=== PATIENT | female | born 1950 | race African-American/Black ===

== ENCOUNTER 2022-11-09 11:43 | Outpatient (REF) | payer MEDICARE, SELFPAY ==
[2022-11-09 14:50] LABS: Free T4 (Free Thyroxine) 0.89 ng/dL (0.71-1.85); Thyroid Stimulating Hormone 0.39 uIU/mL (0.32-4.0)
== END 2022-11-09 11:44 | disposition home or self-care (01) ==
LOC: HO.LAB 11:43
PROVIDERS: PCP Internal Medicine; Visit Provider Internal Medicine
DX: E04.2 Nontoxic multinodular goiter (principal)
CPT/HCPCS: 36415; 84439; 84443; 99202

== ENCOUNTER 2022-11-23 10:48 | Outpatient (REF) | payer MEDICARE, SELFPAY ==
--- NOTE | ~2022-11-23 | US_ITS ---
EXAMINATION: US THYROID CLINICAL INFORMATION: Nontoxic multinodular goiter COMPARISON: None available. TECHNIQUE: Linear transducer grayscale and color Doppler examination with attention to the region of the thyroid. FINDINGS: SIZE: Measurements of the thyroid lobes and nodules are given in sagittal, anteroposterior and transverse dimensions respectively. Right Thyroid Lobe: 6.2 x 2.3 x 3.0 cm, volume 21.8 mL. Parenchyma: The gland echotexture is homogeneous. Thyroid vascularity is normal. Left Thyroid Lobe: 4.7 x 2.3 x 2.1 cm, volume 12.2 mL. Parenchyma: The gland echotexture is homogeneous. Thyroid vascularity is normal. Isthmus: 0.6 cm in maximum AP dimension. Estimated total number of nodules greater than or equal to 1 cm: 4. 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 Location: Right superior/mid. Size: 1.2 x 1.3 x 0.6 cm, volume 0.5 mL. Nodule characteristics: Composition: Cystic(0). ACR TI-RADS total points: 0 ACR TI-RADS category: 1 2. Location: Right mid. Size: 2.6 x 1.9 x 1.8 cm, volume 5.0 mL. Nodule characteristics: Composition: Solid/almost completely solid (2). Echogenicity: Hypoechoic (2). Shape: Taller than wide (3). Margins: Ill-defined (0). Echogenic Foci: None (0). ACR TI-RADS total points: 7 ACR TI-RADS category: 5 3. Location: Left mid/inferior. Size: 0.8 x 0.7 x 0.7 cm, volume 0.2 mL. Nodule characteristics: Composition: Cystic(0). ACR TI-RADS total points: 0 ACR TI-RADS category: 1 4. Location: Left mid/inferior. Size: 1.7 x 1.6 x 1.1 cm, volume 1.6 mL. Nodule characteristics: Composition: Solid/almost completely solid (2). Echogenicity: Very hypoechoic (3). Shape: Taller than wide (3). Margins: Ill-defined (0). Echogenic Foci: Macrocalcifications (1). ACR TI-RADS total points: 9 ACR TI-RADS category: 5 5. Location: Left inferior. Size: 1.5 x 0.9 x 1.3 cm, volume 0.9 mL. Nodule characteristics: Composition: Solid (2). Echogenicity: Isoechoic (1). Shape: Not taller than wide (0). Margins: Smooth (0). Echogenic Foci: None (0). ACR TI-RADS total points: 3 ACR TI-RADS category: 3 NODES: No lymphadenopathy is seen in the tissue surrounding the thyroid gland. US/US thyroid IMPRESSION: Enlarged thyroid gland, right greater than left, with bilateral cystic and solid nodules. According to TI RADS criteria, fine-needle aspiration of the 2.6 x 1.9 x 1.8 cm nodule in the mid right lobe and 1.7 x 1.6 x 1.1 cm nodule in the mid to lower left lobe recommended. ACR TI-RADS RECOMMENDATION REFERENCE: Ultrasound-guided fine-needle aspiration, followup ultrasound, no further follow up. * TR1 (0 point) and TR2 (2 points): No FNA or follow up. * TR3 (3 points): FNA if more than or equal to 2.5 cm in maximum dimension, followup ultrasound in 1, 3 and 5 years if 1.5 to 2.4 cm in maximum dimension. * TR4 (4-6 points): FNA if more than or equal to 1.5 cm in maximum dimension, followup ultrasound in 1, 2, 3 and 5 years if 1 to 1.4 cm in maximum dimension. * TR5 (more than or equal to 7 points): FNA if more than or equal to 1 cm in maximum dimension, followup ultrasound every year for 5 years if 0.5 to 0.9 cm in maximum dimension. * TR3, TR4 or TR5 nodules that are below the size threshold for followup receive no follow up.
== END 2022-11-23 10:49 | disposition home or self-care (01) ==
LOC: HO.US 10:48
PROVIDERS: PCP Internal Medicine; Visit Provider Internal Medicine
DX: E04.2 Nontoxic multinodular goiter (principal)
CPT/HCPCS: 76536

== ENCOUNTER 2024-03-03 11:03 | Outpatient (AMB) | payer MEDICARE, SELFPAY ==
--- NOTE | 2024-03-03 11:05 | A.OFFVIS_ITS ---
Vital Signs 3 03/03/24 11:09 Height 5 ft 2 in Weight 135 lb 5.821 oz BMI 24.8 BP 96/84 Blood Pressure Location Lt brachial Position Sitting Pulse 107 H Pulse Source Pulse Oximeter Intake Visit Reasons: NTMNG-confirmed Intake Note: Patient present today for NTMNG follow up visit. Steward/Stewardess Wine Required: No Accompanied by: Friend Allergies No Known Allergies Allergy (Verified 03/03/24 11:11) Medication List - Last Reconciled 03/03/24 by Odalys Zamorano MD albuterol sulfate 90 mcg/actuation (Ventolin HFA) 0 mcg inhalation amlodipine 10 mg PO DAILY aspirin 81 mg PO DAILY atorvastatin 40 mg PO DAILY blood sugar diagnostic (FreeStyle Lite Strips) As directed chlorthalidone 50 mg PO DAILY citalopram 20 mg PO DAILY inhalational spacing device (Aerochamber Plus Flow-Vu) As directed labetalol 200 mg PO BID lancets (FreeStyle Lancets) As directed metformin 500 mg PO BID multivitamin with folic acid 400 mcg (Daily-Pedro (with folic acid)) 1 tab PO DAILY HPI Comments Details: 73 YO Female with a PMHx CVA with R hemiparesis, who is seen for fup of NTMNG. She underwent a CT of the chest in 2020 and 08/2022 which revealed an incidental finding of a multinodular thyroid. Last visit was in October 2022, with Dr. Oneal, ultrasound of the thyroid gland was ordered. This showed bilateral nodules with a dominant 2.6 cm right-sided nodule TR 5 category, with calcifications. Another dominant 1.7 cm TR 5 nodule with irregular margins, in the left lobe. Labs from October 2022 showed normal thyroid function testing. She does report hoarseness of voice, but denies any other compressive symptoms. Denies any symptoms of hyper or hypothyroidism. She denies any personal history of head or neck irradiation. Denies any family history of thyroid cancer. Smokes tobacco sometimes, and smokes marijuana regularly. Lost 20 lbs in the last 3-4 months and then gained back 15 lbs due to fluctuation sin appetite. Patient currently denies heat or cold intolerance, diarrhea or constipation, hair loss, palpitation, anxiety, weight changes, mood changes, low energy, changes in appearance of eyes or vision changes, tremors, increased diaphoresis or dry skin. ? Patient denies any difficulty swallowing, pain on swallowing or voice changes or difficulty breathing. Patient denies any history of childhood neck radiation. Denies having ever used lithium, amiodarone or biotin supplements. Patient denies any family history of thyroid cancer or thyroid disease. Review of systems Constitutional: no fevers, chills HEENT: no changes in vision Cardiac: No chest pain, discomfort or palpitations. Pulmonary: No SOB GI:No abdominal pain, no nausea or vomiting, no anorexia, no blood in stool : no burning micturition, dysuria or increase in urinary frequency Neurologic: has right sided residual weakness from stroke Physical exam General: sitting comfortably in no acute distress HEENT: normocephalic/atraumatic, moist oral mucosa Neck: supple, palpable B/L thyroid nodules a dominant 1-2 cm one on right side and similar size on left side Cardiac: normal heart sounds Pulm: normal breath sounds B/L, no added breath sounds Abd: not distended, no tenderness Extremities: no edema, no signs of myxedema Foot exam: intact sensation to monofilament, intact pulses, intact vibration PFSH Medical History Asthma CVA (cerebral vascular accident) HLD (hyperlipidemia) HTN (hypertension) Multinodular thyroid T2DM (type 2 diabetes mellitus) Surgical History Hx of fracture of ankle Family History Father Medical history unknown Mother Medical history unknown Social History Alcohol intake: current Alcohol intake frequency: holidays/special occasions only Patient Tobacco Use Status: Former Tobacco user Results Reviewed Results Reviewed: Laboratory Tests 11/09/22 12:38 TSH 0.39 Free T4 0.89 US THYROID 12/15 I reviewed the images myself in the right mid lobe 2.6 cm TR 5 nodule also appears to have calcification again making it highly suspicious. The left lobe 1.7 cm TR 5 nodule also has calcifications along with the regular margins again making it high suspicious nodule. CLINICAL INFORMATION: Nontoxic multinodular goiter COMPARISON: None available. TECHNIQUE: Linear transducer grayscale and color Doppler examination with attention to the region of the thyroid. FINDINGS: SIZE: Measurements of the thyroid lobes and nodules are given in sagittal, anteroposterior and transverse dimensions respectively. Right Thyroid Lobe: 6.2 x 2.3 x 3.0 cm, volume 21.8 mL. Parenchyma: The gland echotexture is homogeneous. Thyroid vascularity is normal. Left Thyroid Lobe: 4.7 x 2.3 x 2.1 cm, volume 12.2 mL. Parenchyma: The gland echotexture is homogeneous. Thyroid vascularity is normal. Isthmus: 0.6 cm in maximum AP dimension. Estimated total number of nodules greater than or equal to 1 cm: 4. Yard Truck Driver nodules are described as follows: 1. Location: Right superior/mid. Size: 1.2 x 1.3 x 0.6 cm, volume 0.5 mL. Nodule characteristics: Composition: Cystic(0). ACR TI-RADS total points: 0 ACR TI-RADS category: 1 2. Location: Right mid. Size: 2.6 x 1.9 x 1.8 cm, volume 5.0 mL. Nodule characteristics: Composition: Solid/almost completely solid (2). Echogenicity: Hypoechoic (2). Shape: Taller than wide (3). Margins: Ill-defined (0). Echogenic Foci: None (0). ACR TI-RADS total points: 7 ACR TI-RADS category: 5 3. Location: Left mid/inferior. Size: 0.8 x 0.7 x 0.7 cm, volume 0.2 mL. Nodule characteristics: Composition: Cystic(0). ACR TI-RADS total points: 0 ACR TI-RADS category: 1 4. Location: Left mid/inferior. Size: 1.7 x 1.6 x 1.1 cm, volume 1.6 mL. Nodule characteristics: Composition: Solid/almost completely solid (2). Echogenicity: Very hypoechoic (3). Shape: Taller than wide (3). Margins: Ill-defined (0). Echogenic Foci: Macrocalcifications (1). ACR TI-RADS total points: 9 ACR TI-RADS category: 5 5. Location: Left inferior. Size: 1.5 x 0.9 x 1.3 cm, volume 0.9 mL. Nodule characteristics: Composition: Solid (2). Echogenicity: Isoechoic (1). Shape: Not taller than wide (0). Margins: Smooth (0). Echogenic Foci: None (0). ACR TI-RADS total points: 3 ACR TI-RADS category: 3 NODES: No lymphadenopathy is seen in the tissue surrounding the thyroid gland. US/US thyroid IMPRESSION: Enlarged thyroid gland, right greater than left, with bilateral cystic and solid nodules. According to TI RADS criteria, fine-needle aspiration of the 2.6 x 1.9 x 1.8 cm nodule in the mid right lobe and 1.7 x 1.6 x 1.1 cm nodule in the mid to lower left lobe recommended. Assessment & Plan Assessment & Plan (1) Multinodular thyroid: Code(s): E04.2 - Nontoxic multinodular goiter Category: Medical Plan: 73-year-old female with no personal history of head or neck radiation, with no family history of thyroid cancer here today for follow up of multinodular goiter. Normal TFTs from October 2022. No significant compressive symptoms. These nodules were diagnosed on CT of the chest done in 2020. Ultrasound thyroid done in November 2022 showed multiple bilateral nodules with a right-sided dominant 2.6 cm TR 5 nodule which is solid, hypoechoic, has microcalcifications and is considered a high suspicious nodule which have a chance of malignancy of greater than 50%.. Another dominant 1.7 cm hypoechoic nodule in the left lobe is taller than wide, with irregular margins and also with calcifications, TR 5, highly suspicious nodule with a chance of malignancy of greater than 50%. I explained that it is common to have thyroid nodules. About 95% of the time these nodules are benign. However if the nodule is > 1 cm in size or suspicious on ultrasound then a fine need aspiration biopsy is recommended. We discussed that a FNAB involves 4-5 passes with a small gauge needle and material obtained is sent off for cytology.If the cytopathology is benign then the nodule will be followed annually with repeat ultrasounds. However if it is suspicious or malignant, we will need to discuss further management. Indeterminate cytology can be further investigated with repeat FNA, genetic testing or empiric lobectomy. Malignant cytology is managed with either lobectomy or total thyroidectomy. We discussed briefly that thyroid cancer is, in most patients, an indolent disease that does not affect mortality. We will arrange for FNA at next available opening of the right 2.6 cm mid lobe nodule and the left 1.7 cm inferior lobe nodule and patient will follow up with me in clinic thereafter for results and further decision making. Plan: -ordered thyroid biopsies of the right 2.6 cm mid lobe nodule in the left 1.7 cm inferior lobe nodule with me -ordered TFTs to be done today -Fup after thyroid biopsy to discuss results Plan I spent 30 minutes in reviewing the record, seeing the patient and documenting in the medical record. Orders: Orders 2 Free T4 (Free Thyroxine) Today E04.2 - Nontoxic multinodular goiter US biopsy thyroid Today E04.2 - Nontoxic multinodular goiter Thyroid Stimulating Hormone Today E04.2 - Nontoxic multinodular goiter Patient Instructions: Do blood work today Schedule thyroid nodule biopsy with me of a right and left sided nodules Follow up after biopsy to discuss results Coding Level of Care Code Est Pt Level 4 (73505) Diagnoses Multinodular thyroid E04.2 Time Spent (min) 30
[2024-03-03 11:09] VITALS: BP 96/84; PULSE 107; BMI 24.8
== END 2024-03-03 11:44 | disposition home or self-care (01) ==
PROVIDERS: PCP Internal Medicine; Visit Provider Student in an Organized Health Care Education/Training Program
DX: E04.2 Nontoxic multinodular goiter (principal)
CPT/HCPCS: 99214

== ENCOUNTER 2024-03-03 11:59 | Outpatient (REF) | payer MEDICARE, SELFPAY ==
[2024-03-03 14:02] LABS: Free T4 (Free Thyroxine) 0.89 ng/dL (0.71-1.85); Thyroid Stimulating Hormone 0.52 uIU/mL (0.32-4.0)
== END 2024-03-03 12:00 | disposition home or self-care (01) ==
LOC: HO.10HDL 11:59
PROVIDERS: Visit Provider Student in an Organized Health Care Education/Training Program
DX: E04.2 Nontoxic multinodular goiter (principal)
CPT/HCPCS: 36415; 84439; 84443; 99212

== ENCOUNTER 2024-03-26 09:51 | Outpatient (REF) | payer MEDICARE, SELFPAY ==
--- NOTE | 2024-03-26 10:53 | PM.PROC ---
Brief Operative Note Date of procedure: 03/26/24 Pre-op diagnosis: Right mid 2.6 cm nodule and left lower 1.7 cm nodule thyroid FNA biopsy Post-op diagnosis: same Procedure: THYROID FINE NEEDLE ASPIRATION PROCEDURE NOTE ? PROCEDURE PERFORMED: Ultrasound-guided FNA of thyroid nodule ? OPERATORS: ? INDICATION: Right mid 2.6 cm nodule and left lower 1.7 cm nodule thyroid FNA biopsy ; FNA performed to assess for malignancy ? DESCRIPTION OF PROCEDURE: The indications for FNA (to assess for malignancy) were reviewed with the patient in detail. Potential complications (e.g., bleeding, infection, damage to local structures, absence of clear diagnosis after FNA) were reviewed. Alternatives to FNA including conservative observation or surgery were described. The patient understood and agreed to proceed. This was documented by the signing of the written informed consent form. A time-out was performed to confirm the patient's identity and the site of planned FNA. The nodules of interest was identified using ultrasound (14 MHz linear array probe). The sites of FNA was then draped in the usual fashion and carefully cleaned and prepared using alcohol swabs. The skin and subcutaneous tissue at the previously-identified sites of needle insertion were iced and sprayed with numbing spray. Under ultrasound guidance, for the right mid 2.6 cm nodule , _5_ passes were performed using a 1.5-inch, 22-gauge needle, and sample was obtained via capillary action. The needle tip was clearly visualized to be within the nodule at the time of sampling for _4_ of _5_ passes. Under ultrasound guidance, for the left lower 1.7 cm nodule , _5_ passes were performed using a 1.5-inch, 22-gauge needle, and sample was obtained via capillary action. The needle tip was clearly visualized to be within the nodule at the time of sampling for _2_(Pass 4 and 5) of _5_ passes. The patient tolerated the procedure well. There were no immediate complications. A small adhesive bandage was applied, and the patient was advised to take acetaminophen (rather than NSAIDs) for any discomfort and to report any signs of inflammation/infection or marked swelling. IMPRESSION: Technically successful ultrasound-guided fine needle aspiration of Right mid 2.6 cm nodule and left lower 1.7 cm thyroid nodules. PLAN: The patient was advised that I will provide follow-up regarding the cytology result and any subsequent plans. Dr. Odalys Zamorano Condition: stable Disposition: same day
== END 2024-03-26 09:52 | disposition home or self-care (01) ==
LOC: HO.US 09:51
PROVIDERS: PCP Internal Medicine; Visit Provider Student in an Organized Health Care Education/Training Program
DX: E04.2 Nontoxic multinodular goiter (principal)
CPT/HCPCS: 10005; 10006; 88173; 88305

== ENCOUNTER → 2024-03-26 09:51 | Outpatient (BNV) | payer MEDICARE, SELFPAY | PROVIDERS: PCP Internal Medicine; Visit Provider Student in an Organized Health Care Education/Training Program | DX: E04.2 Nontoxic multinodular goiter (principal) | CPT/HCPCS: 10005; 10006 ==

== ENCOUNTER 2024-04-09 11:51 | Outpatient (AMB) | payer MEDICARE, SELFPAY ==
--- NOTE | 2024-04-09 12:41 | A.OFFVIS_ITS ---
Vital Signs 3 04/09/24 12:42 Height 5 ft 2 in Weight 136 lb 0.403 oz BMI 24.9 BP 120/88 Blood Pressure Location Lt brachial Position Sitting Pulse 79 Pulse Source Pulse Oximeter Intake Visit Reasons: f/u Biopsy results-conf Intake Note: Patient is present today for biopsy results. Recovery Collector Required: No Accompanied by: Friend Allergies No Known Allergies Allergy (Verified 04/09/24 12:47) HPI Comments Details: 73 YO Female with a PMHx CVA with R hemiparesis, who is seen for fup of NTMNG. She is here today to discuss the results of FNA biopsy performed 03/26/2024. HPI from prior visit She underwent a CT of the chest in 2020 and 08/2022 which revealed an incidental finding of a multinodular thyroid. in October 2022, with Dr. Oneal, ultrasound of the thyroid gland was ordered. This showed bilateral nodules with a dominant 2.6 cm right-sided nodule TR 5 category, with calcifications. Another dominant 1.7 cm TR 5 nodule with irregular margins, in the left lobe. Labs from October 2022 and 03/18 showed normal thyroid function testing. Underwent FNA on 03/26/2024 of the dominant right 2.6 cm TR 5 nodule which came back suspicious for follicular neoplasm ([place] category 4), and the left lower lobe 1.7 cm nodule which came back as atypia of indeterminate significance ([place] category 3). Afirma pending for both. She is here today to discuss the results of the biopsy. She is also seeing Dr. Loida Osborn (thoracic surgeon) at [facility] for evaluation of suspicious pulmonary nodules. I had called her primary care physician Dr. Hsu at [facility] after the visit today, and he confirmed that patient is undergoing evaluation with thoracic surgery at [facility] for suspicious pulmonary nodules that have increased in size. She is currently thinking about her options of a needle biopsy versus VATS resection versus possible lobectomy. She is also waiting on the results of a PET scan done on 04/09/2024 that is today. She also has an upcoming appointment with Dr. Rai Ponce at [facility] on 04/22/2024 for evaluation of a laryngeal lesion (benign neoplasm) that had previously been evaluated by the same date. She does report hoarseness of voice, but denies any other compressive symptoms. Denies any symptoms of hyper or hypothyroidism. She denies any personal history of head or neck irradiation. Denies any family history of thyroid cancer. Smokes tobacco sometimes, and smokes marijuana regularly. Lost 20 lbs in the last 3-4 months and then gained back 15 lbs due to fluctuation sin appetite. Patient currently denies heat or cold intolerance, diarrhea or constipation, hair loss, palpitation, anxiety, weight changes, mood changes, low energy, changes in appearance of eyes or vision changes, tremors, increased diaphoresis or dry skin. ? She continues to be an active smoker, mostly marijuana but also smoking tobacco. Cigars mostly. Review of systems Constitutional: no fevers, chills HEENT: no changes in vision Cardiac: No chest pain, discomfort or palpitations. Pulmonary: No SOB GI:No abdominal pain, no nausea or vomiting, no anorexia, no blood in stool : no burning micturition, dysuria or increase in urinary frequency Neurologic: has right sided residual weakness from stroke Physical exam General: sitting comfortably in no acute distress HEENT: normocephalic/atraumatic, moist oral mucosa Neck: supple, palpable B/L thyroid nodules a dominant 1-2 cm one on right side and similar size on left side Cardiac: normal heart sounds Pulm: normal breath sounds B/L, no added breath sounds Abd: not distended, no tenderness Extremities: no edema, no signs of myxedema Foot exam: intact sensation to monofilament, intact pulses, intact vibration PFSH Medical History Asthma CVA (cerebral vascular accident) HLD (hyperlipidemia) HTN (hypertension) Multinodular thyroid T2DM (type 2 diabetes mellitus) Surgical History Hx of fracture of ankle Family History Father Medical history unknown Mother Medical history unknown Social History Alcohol intake: current Alcohol intake frequency: holidays/special occasions only Patient Tobacco Use Status: Former Tobacco user Results Reviewed Results Reviewed: Laboratory Tests 11/09/22 12:38 TSH 0.39 Free T4 0.89 US THYROID 12/15 I reviewed the images myself in the right mid lobe 2.6 cm TR 5 nodule also appears to have calcification again making it highly suspicious. The left lobe 1.7 cm TR 5 nodule also has calcifications along with the regular margins again making it high suspicious nodule. CLINICAL INFORMATION: Nontoxic multinodular goiter COMPARISON: None available. TECHNIQUE: Linear transducer grayscale and color Doppler examination with attention to the region of the thyroid. FINDINGS: SIZE: Measurements of the thyroid lobes and nodules are given in sagittal, anteroposterior and transverse dimensions respectively. Right Thyroid Lobe: 6.2 x 2.3 x 3.0 cm, volume 21.8 mL. Parenchyma: The gland echotexture is homogeneous. Thyroid vascularity is normal. Left Thyroid Lobe: 4.7 x 2.3 x 2.1 cm, volume 12.2 mL. Parenchyma: The gland echotexture is homogeneous. Thyroid vascularity is normal. Isthmus: 0.6 cm in maximum AP dimension. Estimated total number of nodules greater than or equal to 1 cm: 4. [employer] nodules are described as follows: 1. Location: Right superior/mid. Size: 1.2 x 1.3 x 0.6 cm, volume 0.5 mL. Nodule characteristics: Composition: Cystic(0). ACR TI-RADS total points: 0 ACR TI-RADS category: 1 2. Location: Right mid. Size: 2.6 x 1.9 x 1.8 cm, volume 5.0 mL. Nodule characteristics: Composition: Solid/almost completely solid (2). Echogenicity: Hypoechoic (2). Shape: Taller than wide (3). Margins: Ill-defined (0). Echogenic Foci: None (0). ACR TI-RADS total points: 7 ACR TI-RADS category: 5 3. Location: Left mid/inferior. Size: 0.8 x 0.7 x 0.7 cm, volume 0.2 mL. Nodule characteristics: Composition: Cystic(0). ACR TI-RADS total points: 0 ACR TI-RADS category: 1 4. Location: Left mid/inferior. Size: 1.7 x 1.6 x 1.1 cm, volume 1.6 mL. Nodule characteristics: Composition: Solid/almost completely solid (2). Echogenicity: Very hypoechoic (3). Shape: Taller than wide (3). Margins: Ill-defined (0). Echogenic Foci: Macrocalcifications (1). ACR TI-RADS total points: 9 ACR TI-RADS category: 5 5. Location: Left inferior. Size: 1.5 x 0.9 x 1.3 cm, volume 0.9 mL. Nodule characteristics: Composition: Solid (2). Echogenicity: Isoechoic (1). Shape: Not taller than wide (0). Margins: Smooth (0). Echogenic Foci: None (0). ACR TI-RADS total points: 3 ACR TI-RADS category: 3 NODES: No lymphadenopathy is seen in the tissue surrounding the thyroid gland. US/US thyroid IMPRESSION: Enlarged thyroid gland, right greater than left, with bilateral cystic and solid nodules. According to TI RADS criteria, fine-needle aspiration of the 2.6 x 1.9 x 1.8 cm nodule in the mid right lobe and 1.7 x 1.6 x 1.1 cm nodule in the mid to lower left lobe recommended.Laboratory Tests 11/09/22 03/03/24 12:38 12:04 TSH 0.39 0.52 Free T4 0.89 0.89 Assessment & Plan Assessment & Plan (1) Multinodular thyroid: Code(s): E04.2 - Nontoxic multinodular goiter Category: Medical Plan: 73-year-old female with no personal history of head or neck radiation, with no family history of thyroid cancer here today for follow up of multinodular goiter to discuss the results of her biopsy from 03/26/2024. . Normal TFTs from February 2024. No significant compressive symptoms except some hoarseness of voice. These nodules were diagnosed on CT of the chest done in 2020. Ultrasound thyroid done in November 2022 showed multiple bilateral nodules with a right-sided dominant 2.6 cm TR 5 nodule which is solid, hypoechoic, has microcalcifications and is considered a high suspicious nodule which have a chance of malignancy of greater than 50%.. Another dominant 1.7 cm hypoechoic nodule in the left lobe is taller than wide, with irregular margins and also with calcifications, TR 5, highly suspicious nodule with a chance of malignancy of greater than 50%. She underwent FNA on 03/26/2024 of the right dominant 2.6 cm nodule in the left 1.7 cm lower lobe nodule. Right mid lobe 2.6 cm nodule came back as suspicious for follicular neoplasm ([place] category 4), in the left 1.7 cm lower lobe nodule came back atypia of indeterminate significance with atypical follicular cells as well as nuclear atypia. She is pending Afirma results for both of these lesions. I discussed with the patient that suspicious for follicular neoplasm ([place] category 4) diagnosis harbors a 10-40% chance of malignancy. We will wait for the Afirma results to see if that she harbors any high-risk mutations but most likely she will need thyroid surgery. Given that she has bilateral nodules in the contralateral left-sided nodule also came back as indeterminate, with a Afirma pending, she would likely benefit from a total thyroidectomy. However we will wait for Afirma results before sending the referral out for Dr. Glen Witt at [facility] Endocrine surgery. I told the patient that thyroid cancer in most cases is an indolent disease that does not affect mortality and most people do well with thyroid surgery and radioactive iodine. I also discussed with her that after total thyroidectomy she will need levothyroxine for thyroid hormone replacement for the rest of her life. Patient was also very concerned about the diagnosis of her pulmonary nodules and she is currently undergoing workup with thoracic surgery at [facility] due to suspicious pulmonary nodules that have increased in size. She had a PET scan today on 04/09/2024 and she has waiting to decide our options of a needle biopsy versus wedge resection versus possible lobectomy. I confirmed all of this after her visit with the primary care physician as patient had initially expressed concern that she thinks she has lung cancer however diagnosis is not confirmed currently. If she ends up choosing lobectomy or needing more aggressive intervention for her lung nodules, with confirmation of lung cancer, that will take precedence over her thyroid cancer to be dealt with 1st.. However, for now we will wait for the Afirma results for her thyroid nodules and plan to place a general surgery referral with Dr. Glen Witt at [facility] for further evaluation for total thyroidectomy. I also explained to her that nodules of indeterminate significance harbor a 6- 18% chance of malignancy. I will also arrange a follow up in 2 months to ensure coordination of her care, however most importantly next steps would be thyroid surgery once we have a clear understanding of what thoracic surgery is planning for her. Plan: -follow up Afirma results -after Afirma has resulted, place referral to Dr. Glen Witt at [facility] endocrine surgery -touch base with Dr. Osborn at [facility] (I called his office and left a message for call back) Plan I spent 30 minutes in reviewing the record, seeing the patient and documenting in the medical record. Patient Instructions: We will wait for the mutation testing to come back Once it is back, I will place a referral for Dr. Glen Witt at [facility] in [place], [place] Please let me know by calling our office during office hours why you are seeing Dr. Ponce on 04/22/24 I will obtain your records from your rina doctor and Dr. Gilbert I will reach out to your primary care office with our reccomendations Coding Level of Care Code Tele Est Pt Level 4 (53679) Diagnoses Multinodular thyroid E04.2 Time Spent (min) 30
[2024-04-09 12:42] VITALS: BP 120/88; PULSE 79; BMI 24.9
== END 2024-04-09 13:28 | disposition home or self-care (01) ==
PROVIDERS: PCP Internal Medicine; Visit Provider Student in an Organized Health Care Education/Training Program
DX: E04.2 Nontoxic multinodular goiter (principal)
CPT/HCPCS: 99214

== ENCOUNTER → 2024-04-09 11:51 | Outpatient (BNVA) | payer MEDICARE, SELFPAY | PROVIDERS: PCP Internal Medicine; Visit Provider Student in an Organized Health Care Education/Training Program ==

== ENCOUNTER 2024-04-28 11:02 | Outpatient (REF) | payer MEDICARE, SELFPAY ==
[2024-04-28 13:56] LABS: Albumin Level 4.5 g/dL (3.5-5.0); Calcium 10.4 mg/dL (8.4-10.2)
[2024-04-28 14:20] LABS: Vitamin D 25-OH Total 71.6 ng/mL (>30)
== END 2024-04-28 11:03 | disposition home or self-care (01) ==
LOC: HO.10HDL 11:02
PROVIDERS: Visit Provider Student in an Organized Health Care Education/Training Program
DX: C73 Malignant neoplasm of thyroid gland (principal); E04.2 Nontoxic multinodular goiter; E55.9 Vitamin D deficiency, unspecified
CPT/HCPCS: 36415; 82040; 82306; 82310

== ENCOUNTER 2024-06-10 11:32 | Outpatient (AMB) | payer MEDICARE, SELFPAY ==
--- NOTE | 2024-06-10 11:34 | MHC.OFFVIS ---
Vital Signs 06/10/24 11:35 Height 5 ft 2 in Weight 132 lb 15.02 oz BMI 24.3 BP 98/78 Blood Pressure Location Lt brachial Position Sitting Pulse 100 Pulse Source Pulse Oximeter Intake Visit Reasons: NMG/CONF Intake Note: Patient present today for NMG follow up visit. Thread Laster Required: No Accompanied by: Friend Allergies No Known Allergies Allergy (Verified 06/10/24 11:40) Medication List - Last Reconciled 06/10/24 by Odalys Zamorano MD albuterol sulfate 90 mcg/actuation (Ventolin HFA) 0 mcg inhalation amlodipine 10 mg PO DAILY aspirin 81 mg PO DAILY atorvastatin 40 mg PO DAILY blood sugar diagnostic (FreeStyle Lite Strips) As directed chlorthalidone 50 mg PO DAILY cholecalciferol (vitamin D3) 25 mcg PO DAILY 3 months citalopram 20 mg PO DAILY inhalational spacing device (Aerochamber Plus Flow-Vu) As directed labetalol 200 mg PO BID lancets (FreeStyle Lancets) As directed metformin 500 mg PO BID multivitamin with folic acid 400 mcg (Daily-Pedro (with folic acid)) 1 tab PO DAILY HPI Comments Details: 73 YO Female with a PMHx CVA with R hemiparesis, who is seen for fup of NTMNG. HPI from prior visit She underwent a CT of the chest in 2020 and 08/2022 which revealed an incidental finding of a multinodular thyroid. in October 2022, with Dr. Oneal, ultrasound of the thyroid gland was ordered. This showed bilateral nodules with a dominant 2.6 cm right-sided nodule TR 5 category, with calcifications. Another dominant 1.7 cm TR 5 nodule with irregular margins, in the left lobe. Labs from October 2022 and 03/18 showed normal thyroid function testing. Underwent FNA on 03/26/2024 of the dominant right 2.6 cm TR 5 nodule which came back corrected on 04/10/24 labelling right mid 2.6 cm as suspicious for malignancy ([place] category 5) corrected from [place] category 4. This harbors a 45-60% chance of malignancy. Afirma negative. and the left lower lobe 1.7 cm nodule which came back as atypia of indeterminate significance ([place] category 3). Afirma suspicious for malignancy 75% risk with HRAS mutation. Referral was sent to Dr. Glen Witt at [facility] for surgical evaluation, patient has appointment on 07/04/2024. Patient made some delays in making the appointment due to being over relevant with all the care that is going on currently. She is also seeing Dr. Loida Osborn (thoracic surgeon) at [facility] for evaluation of suspicious pulmonary nodules. I had called her primary care physician Dr. Hsu at [facility] after the visit today, and he confirmed that patient is undergoing evaluation with thoracic surgery at [facility] for suspicious pulmonary nodules that have increased in size. She is currently thinking about her options of a needle biopsy versus VATS resection versus possible lobectomy. PET scan done on 04/09/2024 She also has an upcoming appointment with Dr. Rai Ponce at [facility] for evaluation of a laryngeal lesion (benign neoplasm) that had previously been evaluated by the same date. Interval history 06/10/24 Patient tells me she is scheduled to undergo biopsy of the suspicious pulmonary nodules on 06/11/2024. She has not been able to see Dr. Glen Witt at [facility], scheduled for an appointment 07/04/2024 at 11:00. She does report hoarseness of voice, but denies any other compressive symptoms. She denies any personal history of head or neck irradiation. Denies any family history of thyroid cancer. Smokes tobacco sometimes, and smokes marijuana regularly. Patient currently denies heat or cold intolerance, diarrhea or constipation, hair loss, palpitation, anxiety, weight changes, mood changes, low energy, changes in appearance of eyes or vision changes, tremors, increased diaphoresis or dry skin. ? She continues to be an active smoker, mostly marijuana but also smoking tobacco. Cigars mostly. Review of systems Constitutional: no fevers, chills HEENT: no changes in vision Cardiac: No chest pain, discomfort or palpitations. Pulmonary: No SOB GI:No abdominal pain, no nausea or vomiting, no anorexia, no blood in stool : no burning micturition, dysuria or increase in urinary frequency Neurologic: has right sided residual weakness from stroke Physical exam General: sitting comfortably in no acute distress HEENT: normocephalic/atraumatic, moist oral mucosa Neck: supple, palpable B/L thyroid nodules a dominant 1-2 cm one on right side and similar size on left side Cardiac: normal heart sounds Pulm: normal breath sounds B/L, no added breath sounds Abd: not distended, no tenderness Extremities: no edema, no signs of myxedema Foot exam: intact sensation to monofilament, intact pulses, intact vibration Laboratory Tests 03/03/24 04/28/24 12:04 11:12 Calcium 10.4 H Albumin 4.5 25-OH Vitamin D Total 71.6 TSH 0.52 Free T4 0.89 PFSH Medical History (Updated 04/10/24 @ 10:59 by Odalys Zamorano MD) Vitamin D deficiency Thyroid malignant neoplasm HLD (hyperlipidemia) T2DM (type 2 diabetes mellitus) Asthma CVA (cerebral vascular accident) HTN (hypertension) Multinodular thyroid Surgical History Hx of fracture of ankle Family History Father Medical history unknown Mother Medical history unknown Social History Alcohol intake: current Alcohol intake frequency: holidays/special occasions only Patient Tobacco Use Status: Former Tobacco user Physical Exam Vital Signs: Last Vital Signs Pulse 100 06/10/24 11:35 BP 98/78 06/10/24 11:35 BMI result Body Mass Index 24.3 Assessment & Plan Assessment & Plan (1) Multinodular thyroid: Code(s): E04.2 - Nontoxic multinodular goiter Category: Medical Plan: 73-year-old female with no personal history of head or neck radiation, with no family history of thyroid cancer here today for follow up of multinodular goiter to discuss the results of her biopsy from 03/26/2024. . Normal TFTs from February 2024. No significant compressive symptoms except some hoarseness of voice. These nodules were diagnosed on CT of the chest done in 2020. Ultrasound thyroid done in November 2022 showed multiple bilateral nodules with a right-sided dominant 2.6 cm TR 5 nodule which is solid, hypoechoic, has microcalcifications and is considered a high suspicious nodule which have a chance of malignancy of greater than 50%.. Another dominant 1.7 cm hypoechoic nodule in the left lobe is taller than wide, with irregular margins and also with calcifications, TR 5, highly suspicious nodule with a chance of malignancy of greater than 50%. Underwent FNA on 03/26/2024 of the dominant right 2.6 cm TR 5 nodule which came back corrected on 04/10/24 labelling right mid 2.6 cm as suspicious for malignancy ([place] category 5) corrected from [place] category 4. This harbors a 45-60% chance of malignancy. Afirma negative. and the left lower lobe 1.7 cm nodule which came back as atypia of indeterminate significance ([place] category 3). Afirma suspicious for malignancy 75% risk with HRAS mutation. Referral was sent to Dr. Glen Witt at [facility] for surgical evaluation, patient has appointment on 07/04/2024. Patient made some delays in making the appointment due to being over relevant with all the care that is going on currently. I told the patient that thyroid cancer in most cases is an indolent disease that does not affect mortality and most people do well with thyroid surgery and radioactive iodine. I also discussed with her that after total thyroidectomy she will need levothyroxine for thyroid hormone replacement for the rest of her life. Patient is also undergoing evaluation for pulmonary nodules and she is currently undergoing workup with thoracic surgery at [facility] due to suspicious pulmonary nodules that have increased in size. She had a PET scan on 04/09/2024 and she Is scheduled for needle biopsy on 06/11/2024. I will also arrange a follow up in3 months to ensure coordination of her care, however most importantly next steps would be thyroid surgery once we have a clear understanding of what thoracic surgery is planning for her. Vitamin-D level noted to be at 71 from April 2024, I have asked her to reduce taking vitamin D 1000 unts to twice weekly instead of daily. Plan: -scheduled for appointment with Dr. Glen Witt at [facility] on 07/04/2024 -follow up in 3 months in 08/2024 with me. -reduce vitamin-D to 1000 units twice weekly Plan see above Patient Instructions: Please see Dr. Witt on 07/04/24 at 11 AM Take vitamin D twice a week I will see you back in August 2024 Coding Level of Care Code Est Pt Level 3 (40069) Diagnoses Multinodular thyroid E04.2
[2024-06-10 11:35] VITALS: BP 98/78; PULSE 100; BMI 24.3
== END 2024-06-10 12:05 | disposition home or self-care (01) ==
PROVIDERS: PCP Internal Medicine; Visit Provider Student in an Organized Health Care Education/Training Program
DX: E04.2 Nontoxic multinodular goiter (principal)
CPT/HCPCS: 99213

== ENCOUNTER → 2024-06-10 11:32 | Outpatient (BNVA) | payer MEDICARE, SELFPAY | PROVIDERS: PCP Internal Medicine; Visit Provider Student in an Organized Health Care Education/Training Program | DX: E04.2 Nontoxic multinodular goiter (principal) | CPT/HCPCS: 99212 ==